=== PATIENT | male | born 1945 | race Caucasian/White ===

== ENCOUNTER 2024-10-04 07:31 | Day surgery (SDC) | payer OTHER, SELFPAY ==
[2024-10-04] VITALS (23 sets, daily range): BP systolic 119–157; BP diastolic 70–87; BMI 25.3
[2024-10-04] MEDS: LOW STRENGTH ASPIRIN 81 MG PO (08:16)
[2024-10-04] MEDS: NSS 1000 IV ×2 (08:30→10:00)
[2024-10-04 09:28] LABS: ACT-LR - POC 273 Seconds (116-155)
[2024-10-04 10:43] LABS: ACT-LR - POC > 397 Seconds (116-155)
--- NOTE | 2024-10-04 13:58 | W.PN.UPDATE ---
Update Note
Progress Note Update
Pt seen post LCx PCI w/1 NORM. Right radial cath site without ht/bleeding. OOB ambulating. Post EKG SB 50s, no acute changes. DAPT w/asa, plavix, and pt understands importance of uninterrupted DAPT post stenting. Cardiac rehab consulted. Followup
with Dr. Tovar at [facility] as scheduled. Home today if cath site/tele remain stable.
--- NOTE | 2024-10-06 06:59 | ITS.CL.ANGIO ---
[employer] - Angioplasty
Angioplasty
Procedure Report:
LEFT HEART CATHETERIZATION with Percutaneous Coronary Intervention
Date of Procedure: October 04, 2024
Procedures performed:
1: Coronary angiography
2: Left ventriculography
3: Percutaneous coronary intervention the left circumflex artery with placement of a 4.0 x 18 mm Ambrosio drug-eluting stent
Primary Pump Service Supervisor: Dr. Rj Tovar
INDICATION: The patient is a 78-year-old man with past medical history of coronary artery disease status post prior LAD and diagonal stent placement, hypertension, and hyperlipidemia who is referred for new symptoms concerning for crescendo angina..
ACCESS: The patient was prepped and draped in usual sterile fashion. A 6 Serbian sheath was placed in the right radial artery using the Seldinger over the wire technique.
HEMODYNAMIC FINDINGS (mmHg):
LV(s/d,EDP): 162/12, 22
Ao(s/d,m): 162/79, 106
ANGIOGRAPHIC FINDINGS:
Single-plane Left Ventriculography in TERESA Projection: Not done. LVEF preserved by recent non-invasive studies.
Coronary Angiography:
Dominance: Left
Left Main: Short, normal. Near dual ostia.
Left Anterior Descending: The left anterior descending artery is a medium caliber vessel that has a widely patent previously placed stent. There is distal JOSE 3 flow. There is a very high diagonal branch which courses near the ramus distribution
and is widely patent. There is a second diagonal branch which has a previously placed stent that has diffuse 40-50% in-stent restenosis which appears unchanged from prior angiography in 2012. There is JOSE-3 flow in all vessels.
Ramus Intermedius: There is a medium caliber ramus intermedius branch that has only very mild luminal irregularities.
Left Circumflex: The left circumflex artery is a very large caliber vessel that has a hazy 80% stenosis in the proximal/mid vessel that appears new from prior angiography.. The circumflex gives rise to 2 small obtuse marginal branches which supply
the lateral wall. The circumflex continues to give rise to 2 large posterior left ventricular branches and a left-sided posterior descending artery. These vessels have only mild luminal irregularities.
Right Coronary: Relatively small nondominant vessel that has only mild luminal irregularities.
Percutaneous Coronary Intervention (PCI): In light of the above angiographic findings I elected to proceed with a PCI of the circumflex. The patient was given unfractionated heparin and was pretreated with aspirin. A 6 Serbian XB 4 guiding catheter
was used to engage the left main. A Hi-Torque floppy wire was easily advanced across the circumflex lesion. Predilation was performed with a 2.5 x 15 mm balloon. A 6 Serbian Guideliner was required to deliver a 4.0 x 18 mm Ambrosio drug-eluting stent
to the lesion. The stent became partially dislodged from the deployment balloon and was successfully deployed with the stent balloon. The very distal portion of the stent was then dilated with a 3.5 mm balloon at 16 kade. The stent covered the
diseased segment completely. A 4.0 mm noncompliant balloon was then used to post dilate the stented segment at 16 kade distally and 18 kade proximally.
FINAL RESULT: 0% in-stent residual stenosis with an outstanding angiographic result and JOSE-3 flow in all vessels.
Closure device: None. A TR band was applied for hemostasis at the right wrist.
Complications: None.
ASSESSMENT:
1: Successful PCI of the CFX with placement of a drug-eluting stent as described above.
3: Widely patent previously placed LAD stent.
CONCLUSIONS and RECOMMENDATIONS:
1: Routine post drug-eluting stent medical therapy and monitoring. The patient will need dual antiplatelet therapy uninterrupted for a minimum of one year with aspirin/plavix and then aspirin 81mg daily indefinitely.
Francesco Aponte M.D.
Copy to: Dr. Rj Tovar
== END 2024-10-04 15:18 | disposition home or self-care (01) ==
LOC: CATH 07:31
PROVIDERS: ATTENDING PHYSICIAN Internal Medicine Interventional Cardiology; FAMILY PHYSICIAN Family Medicine Sports Medicine; OTHER PHYSICIAN Internal Medicine Cardiovascular Disease
DX: I25.110 Atherosclerotic heart disease of native coronary artery with unstable angina pectoris (principal); E78.5 Hyperlipidemia, unspecified; I10 Essential (primary) hypertension; Z95.5 Presence of coronary angioplasty implant and graft; I25.2 Old myocardial infarction
CPT/HCPCS: 85347; 93005; 93458; C1725; C1769; C1874; C1887; C1894; C9600

== ENCOUNTER 2024-10-30 10:38 | Outpatient (RCR) | payer OTHER, SELFPAY | END 2024-10-30 23:59 | disposition home or self-care (01) | LOC: CRHB 10:38 | PROVIDERS: ATTENDING PHYSICIAN Internal Medicine Cardiovascular Disease | DX: Z95.5 Presence of coronary angioplasty implant and graft (principal); I25.10 Atherosclerotic heart disease of native coronary artery without angina pectoris | CPT/HCPCS: G0422; G0423 ==

== ENCOUNTER 2024-12-14 10:00 | Outpatient (RCR) | payer OTHER, SELFPAY | END 2024-12-14 23:59 | disposition home or self-care (01) | LOC: CRHB 10:00 | PROVIDERS: ATTENDING PHYSICIAN Internal Medicine Cardiovascular Disease | DX: I25.10 Atherosclerotic heart disease of native coronary artery without angina pectoris (principal); Z95.5 Presence of coronary angioplasty implant and graft | CPT/HCPCS: G0422; G0423 ==